=== PATIENT | male | born 1990 | race Caucasian/White ===

== ENCOUNTER 2019-05-21 10:42 | Emergency (ER) | payer OTHER ==
[~2019-05-21] VITALS: Ht 177.8 cm; Wt 93.8 kg
[2019-05-21] MEDS ORDERED: KETO10TAB PO (12:36)
[2019-05-21] MEDS ORDERED: CYCL10TA PO (12:36)
[2019-05-21 12:39] VITALS: BP 117/66
[2019-05-21] MEDS ORDERED: CYCLOBENZAPRINE 10 MG TAB PO ONE (12:45)
[2019-05-21] MEDS ORDERED: KETOROLAC TROMETHAMINE 10 MG TAB PO ONE (12:45)
== END 2019-05-21 12:44 | disposition home or self-care (01) ==
LOC: M ED 10:42
DX: S39.012A Strain of muscle, fascia and tendon of lower back, initial encounter (principal); X58.XXXA Exposure to other specified factors, initial encounter; Y92.89 Other specified places as the place of occurrence of the external cause